=== PATIENT | female | born 1955 | race Caucasian/White ===

== ENCOUNTER 2017-07-07 14:14 | Outpatient (CLI) | payer OTHER ==
[2017-07-07] MEDS ORDERED: MEPERIDINE 25 MG/ML SYR IVP PRN (14:27)
[2017-07-07] MEDS ORDERED: FLUMAZENIL 0.5 MG/5 ML MDV IVP PRN ×2 (14:27→15:37)
[2017-07-07] MEDS ORDERED: MIDAZOLAM 2 MG/2 ML VIAL IVP PRN ×2 (14:27→15:37)
[2017-07-07] MEDS ORDERED: fentaNYL 100 MCG/2 ML INJ IVP PRN ×2 (14:27→15:37)
[2017-07-07] MEDS ORDERED: NALOXONE HCL 0.4 MG/ML INJ IVP PRN ×2 (14:27→15:37)
[2017-07-07] MEDS ORDERED: NS 1,000 ML IV SCH ×2 (14:30→15:45)
[2017-07-07 15:19] VITALS: PULSE 66; RESP 16; TEMP 97.9; O2SAT 93
--- NOTE | 2017-07-07 15:41 | PDGENHP ---
History & Physical Chief Complaint: evaluate headache History of Present Illness: headache Relevant Physical Exam: healthy, well nourished Cardiorespiratory Assessment: lungs clear, RRR
[2017-07-07] MEDS ORDERED: GADOBUTROL 10 ML VIAL IVP ONE (16:04)
--- NOTE | 2017-07-07 16:14 | PDPROPOC ---
Sedation Plan of Care Sedation Plan of Care: vital signs stable, mental status noted, patient educated of risks, benefits, alternatives, patient can tolerate sedation ASA Classification: ASA 1 Planned drugs: fentanyl, midazolam Mallampati Score: Class 1 Mallampati Reference Image: Patient passed 3-3-2 rule?: Yes
[2017-07-07] MEDS ORDERED: ACETAMINOPHEN 325 MG TAB PO PRN (16:48)
[2017-07-07 17:57] VITALS: BP 137/67
== END 2017-07-07 17:30 | disposition home or self-care (01) ==
LOC: FIMAGING 14:14
PROVIDERS: ATTEND Psychiatry & Neurology Neurology
DX: R51 Headache (principal)
CPT/HCPCS: A9585; J2250; J2310; J3010